=== PATIENT | female | born 1990 | race African-American/Black ===

== ENCOUNTER 2020-04-28 12:31 | Emergency (ER) | payer BC, OTHER ==
[~2020-04-28] VITALS: Ht 177.8 cm; Wt 61.0 kg
[2020-04-28 15:02] VITALS: BP 135/89
== END 2020-04-28 15:05 | disposition home or self-care (01) ==
LOC: ER 12:31
DX: L03.116 Cellulitis of left lower limb (principal); D66 Hereditary factor VIII deficiency; Z88.2 Allergy status to sulfonamides
CPT/HCPCS: 99283

== ENCOUNTER 2022-08-07 19:23 | Emergency (ER) | payer BC, OTHER ==
[~2022-08-07] VITALS: Ht 180.3 cm; Wt 64.0 kg
[2022-08-07 19:34] VITALS: BP 129/96
[2022-08-07] MEDS ORDERED: ONDANSETRON HCL 4MG/2ML INJ IV STA (20:25)
[2022-08-07] MEDS ORDERED: SODIUM CHLORIDE 0.9% 1,000 ML IV ONE (20:30)
[2022-08-07 21:12] LABS: CHLORIDE 103 mEq/L (98-107)
[2022-08-07 21:17] LABS: BASOPHILS % 0.7 % (0.0-2.0); EOSINOPHILS % 0.5 % (0.0-5.0); HEMATOCRIT. 34.7 % (36.0-48.0); HEMOGLOBIN. 11.9 g/dL (12.0-16.0); LYMPHOCYTES % 11.8 % (20.0-50.0); MEAN CORPUSCULAR HEMOGLOBIN 32.6 pg (28.0-32.0); MEAN CORPUSCULAR VOLUME 94.8 fL (81.0-99.0); MONOCYTES % 7.5 % (2.0-8.0); NEUTROPHILS % 79.5 % (40.0-76.0); PLATELET 402 x1000/uL (130-400); RED BLOOD CELL COUNT 3.66 mill/uL (4.2-5.4); RED CELL DISTRIBUTION WIDTH 16.3 % (11.6-14.6)
[2022-08-07 21:21] LABS: HCG SCREEN NEGATIVE
[2022-08-07] MEDS ORDERED: ONDANSETRON 4MG ODT PO ONE (23:30)
[2022-08-08] MEDS ORDERED: FAMO-135 MT
[2022-08-08] MEDS ORDERED: PYRI-7 MT
[2022-08-08 02:33] LABS: INR 0.9; PROTHROMBIN TIME 10.2 sec (9.6-11.0)
== END 2022-08-08 00:20 | disposition home or self-care (01) ==
LOC: ER 19:23
DX: R55 Syncope and collapse (principal); Z98.890 Other specified postprocedural states
CPT/HCPCS: 36415; 71045; 80053; 82962; 84484; 84703; 85025; 85610; 93005; 99285; Q0162; J7030